=== PATIENT | female | born 1950 | race Caucasian/White ===

== ENCOUNTER 2017-11-20 12:37 | Emergency (ER) | payer OTHER, MEDICARE ==
[~2017-11-20] VITALS: Ht 162.6 cm; Wt 54.4 kg
[~2017-11-20 12:37] MED LIST: ALPR.5; ALPR.5 PO; BCOIRO; CARI350; CIPR500 PO; CLAR500 PO; CYCL10 PO; HYDACE5 PO; HYDACE5325 PO; HYDMOR2; HYDMOR4 PO; IBUP200; LEVSOD100 PO; LEVSOD50; ONDA4 PO; OXYACE5T PO; OXYACE7.5T PO; PROM25 PO; PYRI100; RXHYDACE PO; RXOXYACE PO; SERT50 PO; TRAM50; TRAZ50; VENL150ER PO; VENL75; [UNRECOGNIZED DRUG - REMARK]
[2017-11-20 13:15] LABS: BASOPHILS ABSOLUTE AUTO 0.08 K/mm3 (0.00-0.23); BASOPHILS PERCENT AUTO 1 % (0-2); EOSINOPHILS ABSOLUTE AUTO 0.31 K/mm3 (0.00-0.68); EOSINOPHILS PERCENT AUTO 3 % (0-6); Hematocrit 44.2 % (33.0-51.0); Hemoglobin 14.9 g/dL (11.5-16.0); IMMATURE GRAN ABSOLUTE AUTO 0.02 K/mm3 (0.00-0.10); IMMATURE GRAN PERCENT AUTO 0 % (0-1); LYMPHOCYTES ABSOLUTE AUTO 2.74 K/mm3 (0.84-5.20); LYMPHOCYTES PERCENT AUTO 25 % (21-46); MONOCYTES PERCENT AUTO 6 % (4-13); Mean Corpuscular HGB 31.8 pg (26.0-34.0); Mean Corpuscular HGB Conc 33.7 g/dL (31.5-36.5); Mean Corpuscular Volume 94 fL (80-100); Mean Platelet Volume 11.8 fL (9.1-12.4); NEUTROPHILS ABSOLUTE AUTO 7.12 K/mm3 (1.96-9.15); NEUTROPHILS PERCENT AUTO 66 % (41-73); Platelet Count 265 K/mm3 (150-400); RDW Coefficient Variation 12.2 % (11.7-14.2); RDW Standard Deviation 42.4 fL (35.1-46.3); Red Blood Cell Count 4.69 M/mm3 (3.80-5.20); White Blood Cell Count 10.87 K/mm3 (4.00-11.30)
[2017-11-20 13:34] LABS: Alanine Aminotransfer (ALT/SGP 16 U/L (12-78); Albumin, Blood 4.2 g/dL (3.4-5.0); Albumin/Globulin Ratio 1.2 (0.8-1.8); Alk Phos 105 U/L (50-136); Anion Gap 8 mmol/L (6-16); Aspartate Aminotrans (AST/SGOT 16 U/L (12-37); Bilirubin, Total 0.2 mg/dL (0.1-1.0); Blood Urea Nitrogen 8 mg/dL (8-24); Bun/Creatinine Ratio 13.2 (12.0-20.0); CO2, Blood 25 mmol/L (21-32); Chloride, Blood 108 mmol/L (98-108); Creatinine, Blood 0.61 mg/dL (0.40-1.00); Globulin, Blood 3.6 g/dL (2.2-4.0); Glomerular Filtration Rate >60 (60-); Glucose, Blood 106 mg/dL (70-99); Sodium, Blood 141 mmol/L (136-145); Total Protein, Blood 7.8 g/dL (6.4-8.2)
== END 2017-11-20 14:05 | disposition left against medical advice (07) ==
LOC: ER 12:37
PROVIDERS: Emergency Medicine
DX: Z53.21 Procedure and treatment not carried out due to patient leaving prior to being seen by health care provider (principal)
CPT/HCPCS: 36415; 80053; 85025; 99283

== ENCOUNTER 2018-11-18 08:26 | Day surgery (SDC) | payer MEDICARE ==
--- NOTE | 2018-11-18 10:10 | NUR ---
PT TO SDS. BANCAID D/I TO BACK. SMALL AMOUNT OF SWELLING (APPROX QUARTER SIZE) NOTED AT INJCTION SITE. PT C/O OF PAIN AT INJECTION SITE THAT RADIATES TO LEFT HIP ON TOP OF CHRONIC BACK PAIN 02/25. C/O HEADACHE 01/26.
--- NOTE | 2018-11-18 10:32 | NUR ---
CONTINUES TO HAVE HEADACHE. OFFERED TO CALL RADIOLOGY FOR ORDER FOR MEDS BUT STATED SHE DIDN'T NEED ANYTHING AT THIS TIME. NO CHANGE IN MYELOGRAM SITE.
--- NOTE | 2018-11-18 11:51 | NUR ---
WRITTEN AND VERBAL DISCHARGE INSTUCTINS GIVEN TO PT WITH STATED UNDERSTANDING. UPON GETTINT UP TO GO HOME PT COMPLAIN OF PAIN TO LEFT HIP AND RADIATING DOWN LEFT LEG. IS SPOKE WITH DR. SAMUELS IN RADIOLOGY. HE STATES HE WAS NOT WORRIED AND THAT PT COULD GO HOEM. PT TO FOLLOW UP WITH PCP IF SYMPTOMS WORSEN OR DON'T IMPROVE. PT INFORMED OF THIS AND AGREES WITH PLAN.
== END 2018-11-18 23:01 | disposition home or self-care (01) ==
LOC: RAD 08:26 → CT 09:30 → RAD 23:01
DX: M54.2 Cervicalgia (principal); M54.6 Pain in thoracic spine; M96.1 Postlaminectomy syndrome, not elsewhere classified
CPT/HCPCS: 62303; 72129; Q9967

== ENCOUNTER 2025-08-30 07:17 | Day surgery (SDC) | payer OTHER ==
[~2025-08-30] VITALS: Ht 162.6 cm; Wt 45.2 kg
[~2025-08-30 07:17] MED LIST changes: +Balanced Salt Epinephrine Irrigation Solution 500 mL IR SCH; +Moxifloxacin HCL 0.5 MG/0.1 ML 0.4MLSYR RIGHTEYE SCH; +Ondansetron 4 MG SoluTab MM PRN; +PHENYLEPHRINE\\TROPICAMIDE\\TETRACAINE OPHTHALMIC DILATING SOLN RIGHTEYE PRN; +Povidone-Iodine 450 DROP/30 ML Solution ONE; +Povidone-Iodine 450 DROP/30 ML Solution RIGHTEYE SCH; +Tetracaine HCl/Pf 0.5% Opth Soln 4 ml ONE; +Triamcinolone Inj Susp 40 MG / ML 1ML Vial INJ SCH; +Triamcinolone Inj Susp 40 MG / ML 1ML Vial ONE
--- NOTE | 2025-08-30 08:07 | NUR ---
08/30/25 0807 Julisa Uribe PT REPORTS ANXIETY LEVEL 8/10 PRIOR TO ADMINISTRATION OF VALIUM 10MG PO @ 0804. PT REPORTS LORAZEPAM CAUSES HALLUCINATIONS BUT STATES SHE CAN HAVE VALIUM AND ALL THE ONES LIKE IT. PT REPORTS NAUSEA THIS AM THAT SHE THINKS IS FOR NERVES.
[2025-08-30] MEDS ORDERED: OXYCODONE HCL E PO (08:18)
[2025-08-30] MEDS ORDERED: TRAZ50 PO (08:19)
[2025-08-30 09:22] VITALS: BP 136/80
== END 2025-08-30 09:11 | disposition home or self-care (01) ==
LOC: ORSCSDS 07:17
PROVIDERS: Ophthalmology
PROC: 08RJ3JZ Replacement of Right Lens with Synthetic Substitute, Percutaneous Approach (ICD-10-PCS; principal; 2025-08-30 09:00)
DX: H25.811 Combined forms of age-related cataract, right eye (principal); E07.9 Disorder of thyroid, unspecified; Z86.73 Personal history of transient ischemic attack (TIA), and cerebral infarction without residual deficits; Z79.899 Other long term (current) drug therapy
CPT/HCPCS: A9270; J3301; V2632

== ENCOUNTER 2025-09-07 08:05 | Day surgery (SDC) | payer OTHER ==
[~2025-09-07] VITALS: Ht 162.6 cm; Wt 45.3 kg
[~2025-09-07 08:05] MED LIST changes: +Moxifloxacin HCL 0.5 MG/0.1 ML 0.4MLSYR LEFTEYE SCH; -Moxifloxacin HCL 0.5 MG/0.1 ML 0.4MLSYR RIGHTEYE SCH; +OXYCODONE HCL E PO; +PHENYLEPHRINE\\TROPICAMIDE\\TETRACAINE OPHTHALMIC DILATING SOLN LEFTEYE PRN; -PHENYLEPHRINE\\TROPICAMIDE\\TETRACAINE OPHTHALMIC DILATING SOLN RIGHTEYE PRN; +Povidone-Iodine 450 DROP/30 ML Solution LEFTEYE SCH; -Povidone-Iodine 450 DROP/30 ML Solution RIGHTEYE SCH; +TRAZ50 PO
[2025-09-07] MEDS ORDERED: THYROID SUPPORT (08:33)
[2025-09-07] MEDS ORDERED: EXCEDRIN PM HE1 EACH PO (08:34)
--- NOTE | 2025-09-07 09:17 | NUR ---
09/07/25 0917 Irene Vo VITALS AT 0913 BP: 148/88 P: 64 O2: 100% WITH 10 LITERS OF BLOW BY OXYGEN
--- NOTE | 2025-09-07 09:28 | NUR ---
09/07/25 0928 Michelle Zuniga VERBALIZES FEELING A LITTLE "BURNING, STINGING," IN LEFT EYE BUT THEN STATES "NOT REALLY."
[2025-09-07 09:29] VITALS: BP 143/93
== END 2025-09-07 09:40 | disposition home or self-care (01) ==
LOC: ORSCSDS 08:05
PROVIDERS: Ophthalmology
PROC: 08RK3JZ Replacement of Left Lens with Synthetic Substitute, Percutaneous Approach (ICD-10-PCS; principal; 2025-09-07 09:30)
DX: H25.812 Combined forms of age-related cataract, left eye (principal); Z96.1 Presence of intraocular lens; Z86.73 Personal history of transient ischemic attack (TIA), and cerebral infarction without residual deficits; Z79.899 Other long term (current) drug therapy; F17.210 Nicotine dependence, cigarettes, uncomplicated
CPT/HCPCS: A9270; J3301; V2632